=== PATIENT | female | born 1955 | race Two or more races ===

== ENCOUNTER 2016-08-20 19:58 | Inpatient (IN) | payer MEDICARE, OTHER ==
[~2016-08-20] VITALS: Ht 162.6 cm; Wt 64.4 kg
[2016-08-20 20:00] VITALS: BP 116/65
[2016-08-20] MEDS ORDERED: MAGNESIUM HYDROXIDE 30 ML UDC PO PRN (20:30)
[2016-08-20] MEDS ORDERED: MAG HYDROX/AL HYDROX/SIMETH 30 ML UDC PO PRN (20:30)
[2016-08-21 07:20] LABS: BASOPHILS % (AUTO) 0.5 % (0.0-2.0); DIFF TOTAL % 100 %; EOSINOPHILS # (AUTO) 0.5 /CMM (0.0-0.7); EOSINOPHILS % (AUTO) 8.3 % (0.0-6.0); HEMATOCRIT 41 % (33-45); HEMOGLOBIN 13.7 g/dL (11.5-14.8); LYMPHOCYTES # (AUTO) 1.9 /CMM (0.8-4.8); LYMPHOCYTES % (AUTO) 29.5 % (20.0-44.0); MEAN CORPUSCULAR HEMOGLOBIN 30 PG (26.0-33.0); MEAN CORPUSCULAR HGB CONC 33 g/dl (31.0-36.0); MEAN CORPUSCULAR VOLUME 91 fL (82-100); MONOCYTES # (AUTO) 0.4 /CMM (0.1-1.30); MONOCYTES % (AUTO) 6.9 % (2.0-12.0); NEUTROPHILS # (AUTO) 3.6 /CMM (1.8-8.9); NEUTROPHILS % (AUTO) 54.8 % (43.0-81.0); PLATELET COUNT (AUTO) 281 /CMM (150-450); RED BLOOD CELL COUNT(AUTO) 4.53 MIL/uL (4.0-5.2); WHITE BLOOD COUNT (AUTO) 6.5 K/uL (4.3-11.0)
[2016-08-21 07:24] LABS: ALBUMIN 3.4 g/dL (3.4-5.0); BILIRUBIN,TOTAL 0.4 mg/dL (0.2-1.0); CALCIUM, SERUM 9.3 mg/dL (8.5-10.1); CREATININE 1.1 mg/dL (0.6-1.3); POTASSIUM 4.8 mmol/L (3.5-5.1); TOTAL PROTEIN, SERUM 7.6 g/dL (6.4-8.2)
[2016-08-21 08:00] VITALS: BP 120/80
[2016-08-21] MEDS ORDERED: IBUP-1955 PO (08:26)
[2016-08-21] MEDS ORDERED: DIPH25CA6 PO (08:26)
[2016-08-21] MEDS ORDERED: ALPR0.5T8 PO (08:26)
[2016-08-21 16:00] VITALS: BP 117/78
[2016-08-21] MEDS ORDERED: LORAZEPAM 0.5 MG TABLET PO PRN (16:30)
[2016-08-21] MEDS: risperiDONE 1 MG TABLET PO SCH (17:22)
[2016-08-21] MEDS: BENZTROPINE MESYLATE (1 MG) 1 MG TABLET PO SCH (17:22)
[2016-08-21 19:33] VITALS: BP 113/79
[2016-08-22] MEDS: LORAZEPAM 0.5 MG TABLET PO PRN ×3 (01:30→17:35)
[2016-08-22 08:00] VITALS: BP 123/76
[2016-08-22] MEDS: BENZTROPINE MESYLATE (1 MG) 1 MG TABLET PO SCH ×2 (08:09→16:20)
[2016-08-22] MEDS: risperiDONE 1 MG TABLET PO SCH ×2 (08:09→16:20)
[2016-08-22 16:00] VITALS: BP 123/77
[2016-08-22 19:53] VITALS: BP 93/60
[2016-08-22] MEDS: TEMAZEPAM 7.5 MG CAPSULE PO PRN (22:21)
[2016-08-23] MEDS: LORAZEPAM 0.5 MG TABLET PO PRN ×2 (08:37→16:17)
[2016-08-23] MEDS: risperiDONE 1 MG TABLET PO SCH ×2 (08:37→21:14)
[2016-08-23] MEDS: BENZTROPINE MESYLATE (1 MG) 1 MG TABLET PO SCH ×2 (08:37→16:17)
[2016-08-23 09:37] VITALS: BP 127/67
[2016-08-23 15:57] VITALS: BP 102/63
[2016-08-23] MEDS ORDERED: risperiDONE 1 MG TABLET PO SCH (17:00)
[2016-08-23 20:18] VITALS: BP 114/66
[2016-08-23] MEDS: TEMAZEPAM 7.5 MG CAPSULE PO PRN (21:14)
[2016-08-24 08:08] VITALS: BP 105/65
[2016-08-24] MEDS: BENZTROPINE MESYLATE (1 MG) 1 MG TABLET PO SCH ×2 (08:12→16:44)
[2016-08-24] MEDS: risperiDONE 1 MG TABLET PO SCH ×2 (08:12→21:26)
[2016-08-24] MEDS: LORAZEPAM 0.5 MG TABLET PO PRN (08:16)
[2016-08-24] MEDS: DIVALPROEX SODIUM 125 MG CAP.SPRINK PO SCH ×2 (14:55→21:26)
[2016-08-24 16:24] VITALS: BP 125/79
[2016-08-24 20:08] VITALS: BP 108/67
[2016-08-25 08:00] VITALS: BP 108/73
[2016-08-25 08:44] LABS: CHOLESTEROL 174 mg/dL (<200); HDL CHOLESTEROL 45 mg/dL (40-60); LDL 119 mg/dL (0-99); TRIGLYCERIDES 91 mg/dL (30-150)
[2016-08-25] MEDS: BENZTROPINE MESYLATE (1 MG) 1 MG TABLET PO SCH ×2 (09:07→17:17)
[2016-08-25] MEDS: risperiDONE 1 MG TABLET PO SCH ×2 (09:07→21:58)
[2016-08-25] MEDS: DIVALPROEX SODIUM 125 MG CAP.SPRINK PO SCH ×2 (09:08→21:33)
[2016-08-25] MEDS: ACETAMINOPHEN 325 MG TABLET PO PRN (09:12)
[2016-08-25 16:00] VITALS: BP 124/85
[2016-08-25] MEDS: LORAZEPAM 0.5 MG TABLET PO PRN (17:17)
[2016-08-25 20:00] VITALS: BP 111/80
[2016-08-26 08:00] VITALS: BP 125/86
[2016-08-26] MEDS: DIVALPROEX SODIUM 125 MG CAP.SPRINK PO SCH ×2 (08:17→22:22)
[2016-08-26] MEDS: BENZTROPINE MESYLATE (1 MG) 1 MG TABLET PO SCH ×2 (08:17→16:28)
[2016-08-26] MEDS: risperiDONE 1 MG TABLET PO SCH ×2 (08:17→22:18)
[2016-08-26] MEDS: NICOTINE PATCH (7MG) 7 MG PATCH.TD24 TD SCH (08:17)
[2016-08-26] MEDS: LORAZEPAM 0.5 MG TABLET PO PRN (09:58)
[2016-08-26 16:00] VITALS: BP 132/90
[2016-08-26] MEDS: LORAZEPAM 0.5 MG TABLET PO SCH (16:29)
[2016-08-26 20:00] VITALS: BP 110/62
[2016-08-27 07:19] LABS: CALCIUM, SERUM 9.5 mg/dL (8.5-10.1); PHOSPHORUS 4.6 mg/dL (2.5-4.9); POTASSIUM 4.5 mmol/L (3.5-5.1)
[2016-08-27 07:20] LABS: BASOPHILS % (AUTO) 0.5 % (0.0-2.0); DIFF TOTAL % 100 %; EOSINOPHILS # (AUTO) 0.4 /CMM (0.0-0.7); EOSINOPHILS % (AUTO) 5.3 % (0.0-6.0); HEMATOCRIT 41 % (33-45); LYMPHOCYTES # (AUTO) 2.7 /CMM (0.8-4.8); LYMPHOCYTES % (AUTO) 36.1 % (20.0-44.0); MEAN CORPUSCULAR HEMOGLOBIN 31 PG (26.0-33.0); MEAN CORPUSCULAR HGB CONC 34 g/dl (31.0-36.0); MEAN CORPUSCULAR VOLUME 91 fL (82-100); MONOCYTES # (AUTO) 0.5 /CMM (0.1-1.30); MONOCYTES % (AUTO) 6.3 % (2.0-12.0); NEUTROPHILS # (AUTO) 3.9 /CMM (1.8-8.9); NEUTROPHILS % (AUTO) 51.8 % (43.0-81.0); PLATELET COUNT (AUTO) 292 /CMM (150-450); RED BLOOD CELL COUNT(AUTO) 4.57 MIL/uL (4.0-5.2); WHITE BLOOD COUNT (AUTO) 7.5 K/uL (4.3-11.0)
[2016-08-27 08:00] VITALS: BP 108/70
[2016-08-27] MEDS: NICOTINE PATCH (7MG) 7 MG PATCH.TD24 TD SCH (08:12)
[2016-08-27] MEDS: LORAZEPAM 0.5 MG TABLET PO SCH ×2 (08:12→16:53)
[2016-08-27] MEDS: BENZTROPINE MESYLATE (1 MG) 1 MG TABLET PO SCH ×2 (08:13→16:53)
[2016-08-27] MEDS: DIVALPROEX SODIUM 125 MG CAP.SPRINK PO SCH ×2 (08:13→22:25)
[2016-08-27] MEDS: risperiDONE 1 MG TABLET PO SCH ×2 (08:14→22:25)
[2016-08-27 16:03] VITALS: BP 115/69
[2016-08-27 19:50] VITALS: BP 110/63
[2016-08-28 08:00] VITALS: BP 110/74
[2016-08-28] MEDS: DIVALPROEX SODIUM 125 MG CAP.SPRINK PO SCH ×2 (08:04→21:51)
[2016-08-28] MEDS: NICOTINE PATCH (7MG) 7 MG PATCH.TD24 TD SCH (08:04)
[2016-08-28] MEDS: risperiDONE 1 MG TABLET PO SCH ×2 (08:04→21:51)
[2016-08-28] MEDS: LORAZEPAM 0.5 MG TABLET PO SCH ×2 (08:04→16:06)
[2016-08-28] MEDS: BENZTROPINE MESYLATE (1 MG) 1 MG TABLET PO SCH ×2 (08:04→16:06)
[2016-08-28 16:00] VITALS: BP 100/60
[2016-08-28] MEDS: ACETAMINOPHEN 325 MG TABLET PO PRN (17:14)
[2016-08-28 20:06] VITALS: BP 115/65
[2016-08-28] MEDS: LORAZEPAM 0.5 MG TABLET PO PRN (22:40)
[2016-08-29 08:17] VITALS: BP 100/65
[2016-08-29] MEDS: DIVALPROEX SODIUM 125 MG CAP.SPRINK PO SCH ×2 (08:48→21:06)
[2016-08-29] MEDS: risperiDONE 1 MG TABLET PO SCH ×2 (08:48→21:06)
[2016-08-29] MEDS: NICOTINE PATCH (7MG) 7 MG PATCH.TD24 TD SCH (08:49)
[2016-08-29] MEDS: LORAZEPAM 0.5 MG TABLET PO SCH ×2 (08:49→16:24)
[2016-08-29] MEDS: BENZTROPINE MESYLATE (1 MG) 1 MG TABLET PO SCH ×2 (08:49→16:23)
[2016-08-29 16:40] VITALS: BP 102/75
[2016-08-29 20:01] VITALS: BP 102/65
[2016-08-30] MEDS: risperiDONE 1 MG TABLET PO SCH (08:12)
[2016-08-30] MEDS: NICOTINE PATCH (7MG) 7 MG PATCH.TD24 TD SCH (08:12)
[2016-08-30] MEDS: DIVALPROEX SODIUM 125 MG CAP.SPRINK PO SCH (08:12)
[2016-08-30] MEDS: BENZTROPINE MESYLATE (1 MG) 1 MG TABLET PO SCH ×2 (08:12→17:00)
[2016-08-30] MEDS: LORAZEPAM 0.5 MG TABLET PO SCH ×2 (08:13→17:00)
[2016-08-30 08:18] VITALS: BP 112/74
[2016-08-30] MEDS: ACETAMINOPHEN 325 MG TABLET PO PRN (09:21)
[2016-08-30 16:21] VITALS: BP 133/72
== END 2016-08-30 17:08 | disposition home or self-care (01) | DRG 885 ==
LOC: GPS 19:58
PROVIDERS: ADMIT Psychiatry & Neurology Psychosomatic Medicine; ATTEND Family Medicine
DX: F25.0 Schizoaffective disorder, bipolar type (principal); Z91.14 Patient's other noncompliance with medication regimen; F41.9 Anxiety disorder, unspecified; I10 Essential (primary) hypertension; F29 Unspecified psychosis not due to a substance or known physiological condition; F32.9 Major depressive disorder, single episode, unspecified
CPT/HCPCS: 36415; 80048-TC; 80053-TC; 80061-TC; 83735-TC; 84100-TC; 85025-TC; 87081-TC